=== PATIENT | female | born 1960 | race Caucasian/White ===

== ENCOUNTER 2021-11-29 09:14 | Day surgery (SDC) | payer OTHER ==
[~2021-11-29 09:14] MED LIST: ALPRAZolam 0.5 MG TAB PO PRN; HYDROmorphone 0.5 MG/0.5 ML SYRINGE IVP PRN
[2021-11-29 10:14] LABS: Platelet Count 271 k/uL (150-450)
[2021-11-29 10:29] LABS: INR 0.9 (<1.2); Prothrombin Time 10.3 sec (9.0-12.0)
--- NOTE | 2021-11-29 12:34 | XR ---
EXAMINATION TYPE: XR chest 1V portable DATE OF EXAM: 11/29/2021 COMPARISON: NONE HISTORY: Status post right adrenal biopsy TECHNIQUE: Single frontal view of the chest is obtained. FINDINGS: There is no focal air space opacity, pleural effusion, or pneumothorax seen. The cardiac silhouette size is within normal limits. The osseous structures are intact. IMPRESSION: No evident complication status post right adrenal biopsy
--- NOTE | 2021-11-29 13:05 | CT ---
EXAMINATION TYPE: CT biopsy adrenal gland DATE OF EXAM: 11/29/2021 HISTORY: Right adrenal mass COMPARISON: CT from outside institution 10/27/2021 Maximal barrier technique was utilized, hand hygiene obtained with soap and water. The skin overlyin g a suitable path to the right adrenal mass was localized using CT and the overlying skin was prepped and draped. Lidocaine used for local anesthesia. A skin charan made with a scalpel. Using CT [employer] ce, access was gained to the lesion with a 18-gauge core 17-gauge guide needle. Core specimen submit robina to cytology. Single pass performed due to local hemorrhage noted following the first pass. Follo wing the procedure no immediate complications. The patient is discharged in stable condition. Hemo stasis achieved. IMPRESSION: SUCCESSFUL CT GUIDED CORE BIOPSY right adrenal mass. PATHOLOGY PENDING. THIS PROCEDURE WAS PERFORME D BY THE UNDERSIGNED.
== END 2021-11-29 15:00 | disposition home or self-care (01) ==
LOC: RADPROMAIN 09:14
PROVIDERS: ATTEND Internal Medicine
DX: C79.70 Secondary malignant neoplasm of unspecified adrenal gland (principal); G81.94 Hemiplegia, unspecified affecting left nondominant side; G40.909 Epilepsy, unspecified, not intractable, without status epilepticus; M54.9 Dorsalgia, unspecified; Z82.3 Family history of stroke; Z80.9 Family history of malignant neoplasm, unspecified; F17.210 Nicotine dependence, cigarettes, uncomplicated; Z79.1 Long term (current) use of non-steroidal anti-inflammatories (NSAID); Z79.899 Other long term (current) drug therapy
CPT/HCPCS: 36415; 49180; 60699; 71045; 77012; 85049; 85610; 88305; 88341; 88342

== ENCOUNTER → 2022-03-01 | Outpatient (CLI) | payer OTHER ==
--- NOTE | 2022-03-02 05:00 | MR ---
EXAMINATION TYPE: MR brain wo/w con DATE OF EXAM: 03/01/2022 COMPARISON: HISTORY: F/U, malignant neoplasm of brain CONTRAST: Standard multiplanar, multisequence MRI departmental protocol images were obtained without contrast a nd with 7.5 mL intravenous Gadavist gadolinium contrast. There is a 1.6 x 3.8 cm irregular enhancing mass in the midline adjacent to the cerebral falx and the posterior corpus callosum on the right side. The lesion crosses the midline and is producing mass ef fect upon the falx. There is significant thinning of the body of corpus callosum. There is also an en hancing lesion in the posterior corpus callosum that measures 18 x 10 mm. There is patchy extensive c oalescent increased signal in the white matter around the lateral ventricles on the T2 and FLAIR imag es. There is some irregular areas of enhancement in the right parietal lobe near the midline in the a reas of cerebral edema. This area measures 16 mm. There are small curvilinear area of minimal enhance ment medial left frontal lobe measuring 10 x 3 mm. There is normal enhancement of the venous sinuses. No posterior fossa mass. Brainstem is intact. Sell a turcica is normal. No evidence of orbital mass. IMPRESSION: Large irregular elongated mass near the midline in the right posterior parietal lobe with mass effect upon the corpus callosum. Lesion crosses the midline into the left posterior parietal lobe. There is also enhancing lesion in the corpus callosum. Lesions are significantly increased compared to last M R scan and consistent with progression of tumor. There is irregular smaller area of enhancement in the medial right parietal lobe with adjacent enceph alomalacia which appears stable compared to old exams. There is some small area of curvilinear enhancement in the medial left frontal lobe convexity which i s improved compared to last exam. There is clearing of a 1.5 cm area of left lateral parietal parenchymal enhancement compared to old e xam.
== END | disposition home or self-care (01) ==
LOC: RADMRIMAIN 08:52
PROVIDERS: ATTEND Radiology Radiation Oncology
DX: C79.31 Secondary malignant neoplasm of brain (principal); C79.71 Secondary malignant neoplasm of right adrenal gland; C34.12 Malignant neoplasm of upper lobe, left bronchus or lung
CPT/HCPCS: 70553; A9585

== ENCOUNTER 2022-05-19 12:01 | Observation (INO) | payer OTHER ==
--- NOTE | 2022-05-19 12:52 | ED ---
General Adult HPI - General Chief complaint: Recheck/Abnormal Lab/Rx Stated complaint: Weakness Time Seen by Provider: 05/19/22 12:19 Source: patient, RN notes reviewed Mode of arrival: ambulatory Limitations: no limitations - History of Present Illness Initial comments: Patient is a pleasant 61-year-old female presenting to the emergency department for weakness and inability to care for self. Patient was discharged from nursing facility less than a month ago. Patient is not able to take her medications appropriately. Patient has frequent falls. Patient has difficulty using the bathroom and getting around the house. Patient is unable to raise herself or perform ADLs. Patient does have history of 2 strokes, one a couple years ago and the other one recently. Patient has chronic left-sided weakness since the strokes. - Related Data Home Medications Medication Instructions Recorded Confirmed Atorvastatin [Lipitor] 40 mg PO HS 11/22/21 05/19/22 Aspirin EC [Ecotrin Low Dose] 81 mg PO DAILY 05/19/22 05/19/22 Baclofen [Lioresal] 10 mg PO TID 05/19/22 05/19/22 Famotidine [Pepcid] 20 mg PO DAILY 05/19/22 05/19/22 Oxybutynin Xl [Ditropan XL] 5 mg PO HS 05/19/22 05/19/22 Sennosides/Docusate Sodium 1 tab PO DAILY 05/19/22 05/19/22 [Senna-S 8.6-50 mg Tablet] busPIRone HCl [Buspar] 10 mg PO TID 05/19/22 05/19/22 levETIRAcetam [Keppra] 500 mg PO Q8H 05/19/22 05/19/22 lisinopriL [Zestril] 5 mg PO DAILY 05/19/22 05/19/22 traZODone HCL [Desyrel] 50 mg PO HS 05/19/22 05/19/22 Allergies Allergy/AdvReac Type Severity Reaction Status Date / Time No Known Allergies Allergy Verified 05/19/22 13:58 Review of Systems ROS Statement: Those systems with pertinent positive or pertinent negative responses have been documented in the HPI. ROS Other: All systems not noted in ROS Statement are negative. Constitutional: Denies: fever Eyes: Denies: eye pain ENT: Denies: ear pain Respiratory: Denies: cough Cardiovascular: Denies: chest pain Endocrine: Denies: fatigue Gastrointestinal: Denies: abdominal pain Genitourinary: Denies: dysuria Musculoskeletal: Denies: back pain Skin: Denies: rash Neurological: Reports: as per HPI, weakness Past Medical History Past Medical History: CVA/TIA, Hyperlipidemia, Hypertension, Memory Impairment, Seizure Disorder Additional Past Medical History / Comment(s): CVA December 2019 with memory difficulty, left leg weakness, and blurry vision as residual. back pain, last seizure was October 2021 (had 5in a row) and had keppra increased then, hepatitis B approximately 35 years ago, mass on right adrenal gland History of Any Multi-Drug Resistant Organisms: None Reported Past Surgical History: No Surgical Hx Reported Additional Past Surgical History / Comment(s): Patient denies any memory of a seizure but cannot remember what happened during her CVA Past Anesthesia/Blood Transfusion Reactions: No Reported Reaction Additional Past Anesthesia/Blood Transfusion Reaction / Comment(s): no previous surgery or blood transfusion Past Psychological History: No Psychological Hx Reported Smoking Status: Current every day smoker Past Alcohol Use History: Occasional Past Drug Use History: None Reported - Past Family History Mother Family Medical History: Cancer Additional Family Medical History / Comment(s): Patient states her mother had multiple cancerous lesions but did not know original location Father Family Medical History: CVA/TIA, Diabetes Mellitus General Exam Limitations: no limitations General appearance: alert, in no apparent distress Head exam: Present: normocephalic Eye exam: Present: normal appearance, PERRL, EOMI Neck exam: Present: normal inspection Respiratory exam: Present: normal lung sounds bilaterally Cardiovascular Exam: Present: regular rate, normal rhythm GI/Abdominal exam: Present: soft. Absent: tenderness Extremities exam: Present: normal inspection Neurological exam: Present: alert, other (Expressive aphasia) Expanded Motor strength exam: RUE: 5, LUE: 4, RLE: 5, LLE: 4 Eye Response: (4) open spontaneously Motor Response: (6) obeys commands Verbal Response: (5) oriented Psychiatric exam: Present: normal affect, normal mood Skin exam: Present: normal color Course Vital Signs 05/19/22 12:04 Temperature 99 F Pulse Rate 72 Respiratory 18 Rate Blood Pressure 110/64 O2 Sat by Pulse 100 Oximetry Medical Decision Making - Medical Decision Making Patient reevaluated and resting comfortably in bed. Patient states she cannot go home as she is unable to care for self. Case was discussed with Dr. Busby, covering for Dr. Brink, who will admit. - Lab Data Result diagrams: 05/19/22 13:52 05/19/22 13:15 Lab Results 05/19/22 05/19/22 05/19/22 Range/Units 13:15 13:15 13:15 WBC (3.8-10.6) k/uL RBC (3.80-5.40) m/uL Hgb (11.4-16.0) gm/dL Hct (34.0-46.0) % MCV (80.0-100.0) fL MCH (25.0-35.0) pg MCHC (31.0-37.0) g/dL RDW (11.5-15.5) % Plt Count (150-450) k/uL MPV Neutrophils % % Lymphocytes % % Monocytes % % Eosinophils % % Basophils % % Neutrophils # (1.3-7.7) k/uL Lymphocytes # (1.0-4.8) k/uL Monocytes # (0-1.0) k/uL Eosinophils # (0-0.7) k/uL Basophils # (0-0.2) k/uL PT 10.2 (9.0-12.0) sec INR 0.9 (<1.2) APTT 23.9 (22.0-30.0) sec Sodium 138 (137-145) mmol/L Potassium 3.3 L (3.5-5.1) mmol/L Chloride 102 (98-107) mmol/L Carbon Dioxide 27 (22-30) mmol/L Anion Gap 9 mmol/L BUN 5 L (7-17) mg/dL Creatinine 0.54 (0.52-1.04) mg/dL Est GFR (CKD-EPI)AfAm >90 (>60 ml/min/1.73 sqM) Est GFR (CKD-EPI)NonAf >90 (>60 ml/min/1.73 sqM) Glucose 91 (74-99) mg/dL Plasma Lactic Acid Ganga 0.8 (0.7-2.0) mmol/L Calcium 8.7 (8.4-10.2) mg/dL Magnesium 1.8 (1.6-2.3) mg/dL Total Bilirubin 0.9 (0.2-1.3) mg/dL AST 20 (14-36) U/L ALT 28 (4-34) U/L Alkaline Phosphatase 83 (38-126) U/L Total Protein 5.6 L (6.3-8.2) g/dL Albumin 3.3 L (3.5-5.0) g/dL Urine Color Urine Appearance (Clear) Urine pH (5.0-8.0) Ur Specific [place] (1.001-1.035) Urine Protein (Negative) Urine Glucose (UA) (Negative) Urine Ketones (Negative) Urine Blood (Negative) Urine Nitrite (Negative) Urine Bilirubin (Negative) Urine Urobilinogen (<2.0) mg/dL Ur Leukocyte Esterase (Negative) 05/19/22 05/19/22 Range/Units 13:52 14:00 WBC 7.9 (3.8-10.6) k/uL RBC 3.96 (3.80-5.40) m/uL Hgb 11.9 (11.4-16.0) gm/dL Hct 35.6 (34.0-46.0) % MCV 89.8 (80.0-100.0) fL MCH 29.9 (25.0-35.0) pg MCHC 33.3 (31.0-37.0) g/dL RDW 12.8 (11.5-15.5) % Plt Count 249 (150-450) k/uL MPV 7.6 Neutrophils % 69 % Lymphocytes % 17 % Monocytes % 10 % Eosinophils % 3 % Basophils % 0 % Neutrophils # 5.4 (1.3-7.7) k/uL Lymphocytes # 1.4 (1.0-4.8) k/uL Monocytes # 0.8 (0-1.0) k/uL Eosinophils # 0.2 (0-0.7) k/uL Basophils # 0.0 (0-0.2) k/uL PT (9.0-12.0) sec INR (<1.2) APTT (22.0-30.0) sec Sodium (137-145) mmol/L Potassium (3.5-5.1) mmol/L Chloride (98-107) mmol/L Carbon Dioxide (22-30) mmol/L Anion Gap mmol/L BUN (7-17) mg/dL Creatinine (0.52-1.04) mg/dL Est GFR (CKD-EPI)AfAm (>60 ml/min/1.73 sqM) Est GFR (CKD-EPI)NonAf (>60 ml/min/1.73 sqM) Glucose (74-99) mg/dL Plasma Lactic Acid Ganga (0.7-2.0) mmol/L Calcium (8.4-10.2) mg/dL Magnesium (1.6-2.3) mg/dL Total Bilirubin (0.2-1.3) mg/dL AST (14-36) U/L ALT (4-34) U/L Alkaline Phosphatase (38-126) U/L Total Protein (6.3-8.2) g/dL Albumin (3.5-5.0) g/dL Urine Color Yellow Urine Appearance Clear (Clear) Urine pH 6.5 (5.0-8.0) Ur Specific [place] 1.006 (1.001-1.035) Urine Protein Negative (Negative) Urine Glucose (UA) Negative (Negative) Urine Ketones Negative (Negative) Urine Blood Negative (Negative) Urine Nitrite Negative (Negative) Urine Bilirubin Negative (Negative) Urine Urobilinogen <2.0 (<2.0) mg/dL Ur Leukocyte Esterase Negative (Negative) - Radiology Data Radiology results: image reviewed (Chest x-ray shows no acute process. Left upper lobe nodule.) Disposition Clinical Impression: Weakness Disposition: ADMITTED IP TO THIS [facility] Condition: Serious Is patient prescribed a controlled substance at d/c from ED?: No Referrals: JASSON COLLAZO DO [Primary Care Provider] - 1-2 days Time of Disposition: 15:55
[2022-05-19 13:41] LABS: INR 0.9 (<1.2); Partial Thromboplastin Time 23.9 sec (22.0-30.0); Prothrombin Time 10.2 sec (9.0-12.0)
[2022-05-19 13:42] LABS: ALT 28 U/L (4-34); AST 20 U/L (14-36); African American GFR (CKD) >90 (>60 ml/min/1.73 sqM); Albumin 3.3 g/dL (3.5-5.0); Alkaline Phosphatase 83 U/L (38-126); Anion Gap 9 mmol/L; Blood Urea Nitrogen 5 mg/dL (7-17); Calcium 8.7 mg/dL (8.4-10.2); Carbon Dioxide 27 mmol/L (22-30); Chloride 102 mmol/L (98-107); Glucose 91 mg/dL (74-99); Magnesium 1.8 mg/dL (1.6-2.3); Non-African American GFR(CKD) >90 (>60 ml/min/1.73 sqM); Potassium 3.3 mmol/L (3.5-5.1); Sodium 138 mmol/L (137-145); Total Bilirubin 0.9 mg/dL (0.2-1.3); Total Protein 5.6 g/dL (6.3-8.2)
[2022-05-19 13:57] LABS: Basophils % (A) 0 %; Eosinophils # (A) 0.2 k/uL (0-0.7); Eosinophils % (A) 3 %; HCT 35.6 % (34.0-46.0); HGB 11.9 gm/dL (11.4-16.0); Lymphocytes # (A) 1.4 k/uL (1.0-4.8); Lymphocytes % (A) 17 %; MCH 29.9 pg (25.0-35.0); MCHC 33.3 g/dL (31.0-37.0); MCV 89.8 fL (80.0-100.0); Mean Platelet Volume 7.6; Monocytes # (A) 0.8 k/uL (0-1.0); Monocytes % (A) 10 %; Neutrophils # (A) 5.4 k/uL (1.3-7.7); Neutrophils % (A) 69 %; Platelet Count 249 k/uL (150-450); RBC 3.96 m/uL (3.80-5.40); RDW 12.8 % (11.5-15.5); WBC 7.9 k/uL (3.8-10.6)
[2022-05-19 14:15] LABS: Appearance,Urine Clear (Clear); Bilirubin,Urine Negative (Negative); Blood,Urine Negative (Negative); Color,Urine Yellow; Glucose,Urine (UA) Negative (Negative); Ketones,Urine Negative (Negative); Leukocyte Esterase,Urine Negative (Negative); Nitrite,Urine Negative (Negative); PH, Urine 6.5 (5.0-8.0); Protein,Urine Negative (Negative); Specific Gravity,Urine 1.006 (1.001-1.035); Urobilinogen,Urine <2.0 mg/dL (<2.0)
--- NOTE | 2022-05-19 15:01 | XR ---
EXAMINATION TYPE: XR chest 2V DATE OF EXAM: 05/19/2022 COMPARISON: 11/29/2021 TECHNIQUE: PA and lateral views submitted. HISTORY: Weakness FINDINGS: The lungs are clear and there is no pneumothorax, pleural effusion, or focal pneumonia. Hyperinflat ion. Heart size normal. No overt failure. Diffuse osteopenia. Question the lung measuring 1.2 cm. IMPRESSION: 1. No acute process. Correlate for COPD. 2. There is a nodular density in the medial margin of the left upper lobe measuring 1.2 cm. Short-ter m follow-up CT of the chest is recommended to exclude mass.
[2022-05-19] MEDS ORDERED: NALOXONE 0.4 MG/ML 1 ML VIAL IV PRN (15:55)
[2022-05-19] MEDS ORDERED: ACETAMINOPHEN TAB 325 MG TAB PO PRN (15:55)
[2022-05-19] MEDS: SODIUM CHLORIDE 0.9% 1,000 ML IV SCH (16:29)
[2022-05-19] MEDS ORDERED: BACLOFEN 10 MG TAB PO PRN (21:08)
[2022-05-19] MEDS: OXYBUTYNIN XL 5 MG TAB.ER.24 PO SCH (21:55)
[2022-05-19] MEDS: busPIRone HCl 10 MG TAB PO SCH (21:55)
[2022-05-19] MEDS: levETIRAcetam 500 MG TAB PO SCH (21:55)
--- NOTE | 2022-05-20 04:18 | HP ---
HISTORY AND PHYSICAL CHIEF COMPLAINT: Weakness. HISTORY OF PRESENT ILLNESS: A 61-year-old woman with a past medical history of multiple medical issues, admitted to skilled nursing with a stroke and the patient was recently discharged. The patient is complaining of weakness and unable to take a medication appropriately. The patient had difficulty using bathroom and activities of daily living and the patient was taken to [facility] and admitted to the hospital for further evaluation and treatment. There is no history of any fever, rigors, or chills at this time. PAST MEDICAL HISTORY: Reviewed include history of recent stroke, hypertension, hyperlipidemia. HOME MEDICATIONS: Again reviewed include Desyrel and dose and rest of medications reviewed. ALLERGIES: None. FAMILY HISTORY: History of cancer. SOCIAL HISTORY: Occasional alcohol with smoking. REVIEW OF SYSTEMS: A 14-point review of systems is negative except as mentioned earlier. PHYSICAL EXAMINATION: VITAL SIGNS: Pulse 67, blood pressure 119/84, respirations 18. HEENT: Conjunctivae normal. NECK: No JVD. CARDIOVASCULAR: S1, S2 normal. RESPIRATIONS: Breath sounds diminished at the bases. No rhonchi. No crackles. ABDOMEN: Soft. LEGS: No edema. NERVOUS SYSTEM: Diffusely weak. SKIN: No ulcer, rash, bleeding. JOINTS: No active deforming arthropathy. LABS: Reviewed. ASSESSMENT: 1. Diffuse weakness and gait dysfunction and difficulty with activities of daily living. 2. History of recent stroke. 3. Hypertension. 4. Hyperlipidemia. 5. Dementia. 6. History of seizure disorder. RECOMMENDATIONS AND DISCUSSION: I recommend to continue current medications and symptomatic treatment. Resume the home medications. PT, OT evaluation, possible ECF rehab. personal care worker to evaluate the home situation. Prognosis guarded. Further recommendation to follow. MMODL / IJN: [id number] /
[2022-05-20] MEDS: levETIRAcetam 500 MG TAB PO SCH ×3 (05:34→21:45)
[2022-05-20] MEDS: SODIUM CHLORIDE 0.9% 1,000 ML IV SCH ×2 (05:36→21:45)
[2022-05-20] MEDS: FAMOTIDINE 20 MG TAB PO SCH (09:32)
[2022-05-20] MEDS: lisinopriL 5 MG TAB PO SCH (09:32)
[2022-05-20] MEDS: busPIRone HCl 10 MG TAB PO SCH ×3 (09:32→21:45)
[2022-05-20] MEDS: ASPIRIN 81 MG PO SCH (09:32)
[2022-05-20] MEDS: SENNOSIDES-DOCUSATE SODIUM 1 EACH TAB PO SCH (09:32)
[2022-05-20 11:29] LABS: African American GFR (CKD) >90 (>60 ml/min/1.73 sqM); Anion Gap 6 mmol/L; Blood Urea Nitrogen 8 mg/dL (7-17); Calcium 8.3 mg/dL (8.4-10.2); Carbon Dioxide 26 mmol/L (22-30); Chloride 105 mmol/L (98-107); Glucose 87 mg/dL (74-99); Non-African American GFR(CKD) >90 (>60 ml/min/1.73 sqM); Sodium 137 mmol/L (137-145)
--- NOTE | 2022-05-20 15:47 | P.PN ---
Subjective Progress Note Date: 05/20/22 This is a 61-year-old female who was recently admitted with significant weakness and unable to care for herself and take her medications appropriately at home. Patient has been having difficulty going to the bathroom and performing activities of daily living and physical therapy has been requested. Case management following for possible ECF. Potassium was found to be mildly low at 3.3 and unsure if replaced in the ER and will obtain repeat BMP today. Patient is afebrile denies chest pain or shortness of breath. Patient denies nausea or vomiting and is tolerating diet. Review of systems: Constitutional: No reports of fatigue, fever, or chills Cardiovascular: No reports of chest pain or palpitations Respiratory: No reports of shortness of breath or cough GI: No reports of nausea, no reports of of vomiting, no reports of diarrhea : No reports of dysuria or retention Neurovascular: reports of generalized weakness All medications have been reviewed Active Medications Acetaminophen (Acetaminophen Tab 325 Mg Tab) 650 mg PO Q6HR PRN PRN Reason: Mild Pain or Fever > 100.5 Aspirin (Aspirin 81 Mg) 81 mg PO DAILY [facility] Last Admin: 05/20/22 09:32 Dose: 81 mg Atorvastatin Calcium (Atorvastatin 40 Mg Tab) 40 mg PO HS [facility] Baclofen (Baclofen 10 Mg Tab) 10 mg PO TID PRN PRN Reason: Spasms Buspirone HCl (Buspirone Hcl 10 Mg Tab) 10 mg PO TID [facility] Last Admin: 05/20/22 09:32 Dose: 10 mg Famotidine (Famotidine 20 Mg Tab) 20 mg PO DAILY [facility] Last Admin: 05/20/22 09:32 Dose: 20 mg Sodium Chloride (Saline 0.9%) 1,000 mls @ 75 mls/hr IV .[id number] [facility] Last Admin: 05/20/22 05:36 Dose: 75 mls/hr Levetiracetam (Levetiracetam 500 Mg Tab) 500 mg PO Q8H [facility] Last Admin: 05/20/22 05:34 Dose: 500 mg Lisinopril (Lisinopril 5 Mg Tab) 5 mg PO DAILY [facility] Last Admin: 05/20/22 09:32 Dose: 5 mg Naloxone HCl (Naloxone 0.4 Mg/Ml 1 Ml Vial) 0.2 mg IV Q2M PRN PRN Reason: Opioid Reversal Oxybutynin Chloride (Oxybutynin Xl 5 Mg Tab.Er.24) 5 mg PO HS [facility] Last Admin: 05/19/22 21:55 Dose: 5 mg Senna/Docusate Sodium (Sennosides-Docusate Sodium 1 Each Tab) 1 each PO DAILY [facility] Last Admin: 05/20/22 09:32 Dose: 1 each Trazodone HCl (Trazodone Hcl 50 Mg Tab) 50 mg PO HS [facility] PHYSICAL EXAMINATION: GENERAL: The patient is alert and oriented x3, Well developed, well nourished. HEENT: Pupils are round and equally reacting to light. EOMI. no scleral icterus. No conjunctival pallor. Normocephalic, atraumatic. No pharyngeal erythema. No thyromegaly. CARDIOVASCULAR: S1 and S2 muffled PULMONARY: diminished breath sounds bilaterally with no wheezing or rhonchi noted. ABDOMEN: soft. Nontender on exam. non-distended, normoactive bowel sounds. No palpable organomegaly. MUSCULOSKELETAL: No joint swelling or deformity. EXTREMITIES: No cyanosis, clubbing, or pedal edema. NEUROLOGICAL: Gross neurological examination did not reveal any focal deficits. Diffuse weakness SKIN: No rashes. Assessment: Diffuse weakness and gait dysfunction with difficulty performing activities of daily living and lives on her own History of recent stroke in December 2019 Hypertension Hyperlipidemia Memory impairment after her stroke history of seizure disorder Continued ongoing nicotine abuse GI prophylaxis DVT prophylaxis Full code Plan: Recommend continue with current medications and resume home medications Recommend PT/OT evaluation Case management following working on ECF Insurance requires authorization for ECF which is currently pending at this time Potassium was 3.3 in the ER and repeat today is 4.0 Patient was continued on IV hydration although eating and drinking with no difficulties will discontinue IV fluids Encouraged increased activity as tolerated Given the holiday patient will most likely not discharge until Monday and will continue to monitor closely The impression and plan of care has been dictated by Sondra Rowe, nurse practitioner as directed. Dr. Indigo MUÑOZ I have performed a history and examination and MDM of this patient, discussed the same with the dictator, and agree with the dictator's assessment and plan as written ,documented as a scribe. Based on total visit time, I have performed more than 50% of the visit. Any additional findings or plans will be noted. Objective - Vital Signs Vital signs: Vital Signs Temp 97.8 F 05/20/22 04:01 Pulse 68 05/20/22 04:01 Resp 14 05/20/22 04:01 BP 106/51 05/20/22 04:01 Pulse Ox 96 05/20/22 04:01 FiO2 Intake & Output 05/19/22 05/20/22 05/20/22 18:59 06:59 18:59 Output Total 100 Balance -100 Weight 86.183 kg 71.5 kg Output: Urine 100 Straight 100 Other: Voiding Method Bedside Commode # Voids 1 - Labs CBC & Chem 7: 05/19/22 13:52 05/20/22 10:42 Labs: Abnormal Lab Results - Last 24 Hours (Table) 05/19/22 Range/Units 13:15 Potassium 3.3 L (3.5-5.1) mmol/L BUN 5 L (7-17) mg/dL Total Protein 5.6 L (6.3-8.2) g/dL Albumin 3.3 L (3.5-5.0) g/dL
[2022-05-20] MEDS: traZODone HCL 50 MG TAB PO SCH (21:45)
[2022-05-20] MEDS: OXYBUTYNIN XL 5 MG TAB.ER.24 PO SCH (21:45)
[2022-05-20] MEDS: ATORVASTATIN 40 MG TAB PO SCH (21:45)
[2022-05-21] MEDS: levETIRAcetam 500 MG TAB PO SCH ×3 (05:39→20:47)
[2022-05-21] MEDS: ASPIRIN 81 MG PO SCH (08:23)
[2022-05-21] MEDS: FAMOTIDINE 20 MG TAB PO SCH (08:23)
[2022-05-21] MEDS: lisinopriL 5 MG TAB PO SCH (08:23)
[2022-05-21] MEDS: SENNOSIDES-DOCUSATE SODIUM 1 EACH TAB PO SCH (08:23)
[2022-05-21] MEDS: busPIRone HCl 10 MG TAB PO SCH ×3 (08:23→20:47)
[2022-05-21] MEDS: ATORVASTATIN 40 MG TAB PO SCH (20:47)
[2022-05-21] MEDS: traZODone HCL 50 MG TAB PO SCH (20:47)
[2022-05-21] MEDS: OXYBUTYNIN XL 5 MG TAB.ER.24 PO SCH (20:47)
--- NOTE | 2022-05-21 22:08 | P.PN ---
Subjective Progress Note Date: 05/21/22 This is a 61-year-old female who was recently admitted with significant weakness and unable to care for herself and take her medications appropriately at home. Patient has been having difficulty going to the bathroom and performing activities of daily living and physical therapy has been requested. Case management following for possible ECF. Potassium was found to be mildly low at 3.3 and unsure if replaced in the ER and will obtain repeat BMP today. Patient is afebrile denies chest pain or shortness of breath. Patient denies nausea or vomiting and is tolerating diet. 05/21/2022 Patient is sitting up at bedside today. No acute events overnight. She is using bedside commode. Still with generalized weakness. She is pending subacute rehab placement currently pending bed placement at [facility]. Potassium has improved to 4.0, sodium 137, BUN 8, creatinine 0.52. Urinalysis negative for infection. Continues off IV fluids she is tolerating 75% or greater of meals. She remains afebrile, heart rate 57, blood pressure 106/66, 99% room air. Review of systems: Constitutional: No reports of fatigue, fever, or chills Cardiovascular: No reports of chest pain or palpitations Respiratory: No reports of shortness of breath or cough GI: No reports of nausea, no reports of of vomiting, no reports of diarrhea : No reports of dysuria or retention Neurovascular: reports of generalized weakness All medications have been reviewed PHYSICAL EXAMINATION: GENERAL: The patient is alert and oriented x3, Well developed, well nourished. HEENT: Pupils are round and equally reacting to light. EOMI. no scleral icterus. No conjunctival pallor. Normocephalic, atraumatic. No pharyngeal erythema. No thyromegaly. CARDIOVASCULAR: S1 and S2 muffled PULMONARY: diminished breath sounds bilaterally with no wheezing or rhonchi noted. ABDOMEN: soft. Nontender on exam. non-distended, normoactive bowel sounds. No palpable organomegaly. MUSCULOSKELETAL: No joint swelling or deformity. EXTREMITIES: No cyanosis, clubbing, or pedal edema. NEUROLOGICAL: Gross neurological examination did not reveal any focal deficits. Diffuse weakness SKIN: No rashes. Assessment: Diffuse weakness and gait dysfunction with difficulty performing activities of daily living and lives on her own History of recent stroke in December 2019 with left sided weakness residuals Hypertension Hyperlipidemia Memory impairment after her stroke history of seizure disorder Continued ongoing nicotine abuse GI prophylaxis DVT prophylaxis Full code Plan: Case management following working on ECF Insurance requires authorization for ECF which is currently pending at this time Encouraged increased activity as tolerated Given the patient will most likely not discharge until Monday Continue all other supportive care The impression and plan of care has been dictated by Lesvia Cazares, Nurse Practitioner as directed. Dr. Indigo MD I have performed a history and physical examination and medical decision making of this patient, discussed the same with the dictator, and agree with the dictators assessment and plan as written, documented as a scribe. Based on total visit time, I have performed more than 50% of this visit. Objective - Vital Signs Vital signs: Vital Signs Temp 98.8 F 05/21/22 12:12 Pulse 62 05/21/22 12:12 Resp 18 05/21/22 12:12 BP 114/71 05/21/22 12:12 Pulse Ox 99 05/21/22 12:12 FiO2 Intake & Output 05/20/22 05/21/22 05/21/22 18:59 06:59 18:59 Intake Total 825 900 Balance 825 900 Intake: IV 825 Sodium Chloride 0.9% 1, 825 000 ml @ 75 mls/hr IV . [id number] [facility] Rx#:[id number] Intake, IV Titration 900 Amount Sodium Chloride 0.9% 1, 900 000 ml @ 75 mls/hr IV . [id number] [facility] Rx#:[id number] Other: Voiding Method Bedside Commode # Voids 1 2 # Bowel Movements 1 - Labs CBC & Chem 7: 05/19/22 13:52 05/20/22 10:42 Assessment and Plan Time with Patient: Less than 30
[2022-05-22] MEDS: levETIRAcetam 500 MG TAB PO SCH ×3 (05:52→21:47)
[2022-05-22] MEDS: lisinopriL 5 MG TAB PO SCH (08:11)
[2022-05-22] MEDS: ASPIRIN 81 MG PO SCH (08:11)
[2022-05-22] MEDS: busPIRone HCl 10 MG TAB PO SCH ×3 (08:11→21:47)
[2022-05-22] MEDS: FAMOTIDINE 20 MG TAB PO SCH (08:11)
[2022-05-22] MEDS: SENNOSIDES-DOCUSATE SODIUM 1 EACH TAB PO SCH (08:11)
[2022-05-22] MEDS: ATORVASTATIN 40 MG TAB PO SCH (21:47)
[2022-05-22] MEDS: OXYBUTYNIN XL 5 MG TAB.ER.24 PO SCH (21:47)
[2022-05-22] MEDS: traZODone HCL 50 MG TAB PO SCH (21:47)
--- NOTE | 2022-05-22 22:38 | P.PN ---
Subjective Progress Note Date: 05/22/22 This is a 61-year-old female who was recently admitted with significant weakness and unable to care for herself and take her medications appropriately at home. Patient has been having difficulty going to the bathroom and performing activities of daily living and physical therapy has been requested. Case management following for possible ECF. Potassium was found to be mildly low at 3.3 and unsure if replaced in the ER and will obtain repeat BMP today. Patient is afebrile denies chest pain or shortness of breath. Patient denies nausea or vomiting and is tolerating diet. 05/21/2022 Patient is sitting up at bedside today. No acute events overnight. She is using bedside commode. Still with generalized weakness. She is pending subacute rehab placement currently pending bed placement at [facility]. Potassium has improved to 4.0, sodium 137, BUN 8, creatinine 0.52. Urinalysis negative for infection. Continues off IV fluids she is tolerating 75% or greater of meals. She remains afebrile, heart rate 57, blood pressure 106/66, 99% room air. 05/22/2022 Patient is pending ECF placement when bed available. She has been mainly resting in bed, sitting up for meals. She reports no pain, no acute events overnight. She is pending ECF placement. No new labs from today. She is afebrile, heart rate 67, blood pressure 96/65 today, 99% room air. Lisinopril will be held and monitor blood pressure closely. Can resume at lower dose 2.5 mg daily if blood pressure improves. Review of systems: Constitutional: No reports of fatigue, fever, or chills Cardiovascular: No reports of chest pain or palpitations Respiratory: No reports of shortness of breath or cough GI: No reports of nausea, no reports of of vomiting, no reports of diarrhea : No reports of dysuria or retention Neurovascular: reports of generalized weakness All medications have been reviewed PHYSICAL EXAMINATION: GENERAL: The patient is alert and oriented x3, Well developed, well nourished. HEENT: Pupils are round and equally reacting to light. EOMI. no scleral icterus. No conjunctival pallor. Normocephalic, atraumatic. No pharyngeal erythema. No thyromegaly. CARDIOVASCULAR: S1 and S2 muffled PULMONARY: diminished breath sounds bilaterally with no wheezing or rhonchi noted. ABDOMEN: soft. Nontender on exam. non-distended, normoactive bowel sounds. No palpable organomegaly. MUSCULOSKELETAL: No joint swelling or deformity. EXTREMITIES: No cyanosis, clubbing, or pedal edema. NEUROLOGICAL: Gross neurological examination did not reveal any focal deficits. Diffuse weakness SKIN: No rashes. Assessment: Diffuse weakness and gait dysfunction with difficulty performing activities of daily living and lives on her own History of recent stroke in December 2019 with left sided weakness residuals Hypertension currently normotensive Hyperlipidemia Memory impairment after her stroke history of seizure disorder Continued ongoing nicotine abuse GI prophylaxis DVT prophylaxis Full code Plan: Hold lisinopril Case management following working on ECF Insurance requires authorization for ECF which is currently pending at this time Encouraged increased activity as tolerated Given the patient will most likely not discharge until Monday Continue all other supportive care The impression and plan of care has been dictated by Lesvia Cazares Nurse Practitioner as directed. Dr. Indigo MD I have performed a history and physical examination and medical decision making of this patient, discussed the same with the dictator, and agree with the dictators assessment and plan as written, documented as a scribe. Based on total visit time, I have performed more than 50% of this visit. Objective - Vital Signs Vital signs: Vital Signs Temp 97.4 F L 05/22/22 04:39 Pulse 66 05/22/22 04:39 Resp 18 05/22/22 04:39 BP 110/66 05/22/22 04:39 Pulse Ox 95 05/22/22 04:39 FiO2 Intake & Output 05/21/22 05/22/22 05/22/22 18:59 06:59 18:59 Other: Voiding Method Bedside Commode # Voids 3 5 # Bowel Movements 1 - Labs CBC & Chem 7: 05/19/22 13:52 05/20/22 10:42 Assessment and Plan Time with Patient: Less than 30
[2022-05-23] MEDS: levETIRAcetam 500 MG TAB PO SCH ×3 (05:27→21:18)
[2022-05-23] MEDS: busPIRone HCl 10 MG TAB PO SCH ×3 (08:42→21:18)
[2022-05-23] MEDS: ASPIRIN 81 MG PO SCH (08:42)
[2022-05-23] MEDS: SENNOSIDES-DOCUSATE SODIUM 1 EACH TAB PO SCH (08:42)
[2022-05-23] MEDS: FAMOTIDINE 20 MG TAB PO SCH (08:42)
--- NOTE | 2022-05-23 14:09 | P.PN ---
Subjective Progress Note Date: 05/23/22 This is a 61-year-old female who was recently admitted with significant weakness and unable to care for herself and take her medications appropriately at home. Patient has been having difficulty going to the bathroom and performing activities of daily living and physical therapy has been requested. Case management following for possible ECF. Potassium was found to be mildly low at 3.3 and unsure if replaced in the ER and will obtain repeat BMP today. Patient is afebrile denies chest pain or shortness of breath. Patient denies nausea or vomiting and is tolerating diet. 05/21/2022 Patient is sitting up at bedside today. No acute events overnight. She is using bedside commode. Still with generalized weakness. She is pending subacute rehab placement currently pending bed placement at [facility]. Potassium has improved to 4.0, sodium 137, BUN 8, creatinine 0.52. Urinalysis negative for infection. Continues off IV fluids she is tolerating 75% or greater of meals. She remains afebrile, heart rate 57, blood pressure 106/66, 99% room air. 05/22/2022 Patient is pending ECF placement when bed available. She has been mainly resting in bed, sitting up for meals. She reports no pain, no acute events overnight. She is pending ECF placement. No new labs from today. She is afebrile, heart rate 67, blood pressure 96/65 today, 99% room air. Lisinopril will be held and monitor blood pressure closely. Can resume at lower dose 2.5 mg daily if blood pressure improves. 05/23/2022 Patient is resting in bed today. No acute events overnight. She continues to report generalized weakness. Blood pressure 95/65 lisinopril remains on hold. Pending ECF placement when bed available. Clinically she is stable for discharge. Review of systems: Constitutional: No reports of fatigue, fever, or chills Cardiovascular: No reports of chest pain or palpitations Respiratory: No reports of shortness of breath or cough GI: No reports of nausea, no reports of of vomiting, no reports of diarrhea : No reports of dysuria or retention Neurovascular: reports of generalized weakness All medications have been reviewed PHYSICAL EXAMINATION: GENERAL: The patient is alert and oriented x3, Well developed, well nourished. HEENT: Pupils are round and equally reacting to light. EOMI. no scleral icterus. No conjunctival pallor. Normocephalic, atraumatic. No pharyngeal erythema. No thyromegaly. CARDIOVASCULAR: S1 and S2 muffled PULMONARY: diminished breath sounds bilaterally with no wheezing or rhonchi noted. ABDOMEN: soft. Nontender on exam. non-distended, normoactive bowel sounds. No palpable organomegaly. MUSCULOSKELETAL: No joint swelling or deformity. EXTREMITIES: No cyanosis, clubbing, or pedal edema. NEUROLOGICAL: Gross neurological examination did not reveal any focal deficits. Diffuse weakness SKIN: No rashes. Assessment: Diffuse weakness and gait dysfunction with difficulty performing activities of daily living and lives on her own History of recent stroke in December 2019 with left sided weakness residuals Hypertension currently normotensive Hyperlipidemia Memory impairment after her stroke history of seizure disorder Continued ongoing nicotine abuse GI prophylaxis DVT prophylaxis Full code Plan: Hold lisinopril Case management following working on ECF Insurance requires authorization for ECF which is currently pending at this time Encouraged increased activity as tolerated Given the patient will most likely not discharge until Monday if bed available at ECF Continue all other supportive care The impression and plan of care has been dictated by Lesvia Cazares Nurse Practitioner as directed. Dr. Indigo MD I have performed a history and physical examination and medical decision making of this patient, discussed the same with the dictator, and agree with the dictators assessment and plan as written, documented as a scribe. Based on total visit time, I have performed more than 50% of this visit. Objective - Vital Signs Vital signs: Vital Signs Temp 97.3 F L 05/23/22 13:00 Pulse 76 05/23/22 13:00 Resp 16 05/23/22 13:00 BP 95/65 05/23/22 13:00 Pulse Ox 99 05/23/22 13:00 FiO2 Intake & Output 05/22/22 05/23/22 05/23/22 18:59 06:59 18:59 Other: Voiding Method Bedside Commode Bedside Commode # Voids 2 3 - Labs CBC & Chem 7: 05/19/22 13:52 05/20/22 10:42 Assessment and Plan Time with Patient: Less than 30
[2022-05-23] MEDS: OXYBUTYNIN XL 5 MG TAB.ER.24 PO SCH (21:18)
[2022-05-23] MEDS: ATORVASTATIN 40 MG TAB PO SCH (21:18)
[2022-05-23] MEDS: traZODone HCL 50 MG TAB PO SCH (21:19)
[2022-05-24] MEDS: levETIRAcetam 500 MG TAB PO SCH ×3 (05:12→21:29)
[2022-05-24] MEDS: busPIRone HCl 10 MG TAB PO SCH ×3 (08:04→21:29)
[2022-05-24] MEDS: SENNOSIDES-DOCUSATE SODIUM 1 EACH TAB PO SCH (08:04)
[2022-05-24] MEDS: FAMOTIDINE 20 MG TAB PO SCH (08:04)
[2022-05-24] MEDS: ASPIRIN 81 MG PO SCH (08:04)
[2022-05-24] MEDS: OXYBUTYNIN XL 5 MG TAB.ER.24 PO SCH (21:28)
[2022-05-24] MEDS: traZODone HCL 50 MG TAB PO SCH (21:29)
[2022-05-24] MEDS: ATORVASTATIN 40 MG TAB PO SCH (21:29)
[2022-05-25] MEDS: levETIRAcetam 500 MG TAB PO SCH (05:24)
--- NOTE | 2022-05-25 06:33 | P.PN ---
Subjective Progress Note Date: 05/24/22 This is a 61-year-old female who was recently admitted with significant weakness and unable to care for herself and take her medications appropriately at home. Patient has been having difficulty going to the bathroom and performing activities of daily living and physical therapy has been requested. Case management following for possible ECF. Potassium was found to be mildly low at 3.3 and unsure if replaced in the ER and will obtain repeat BMP today. Patient is afebrile denies chest pain or shortness of breath. Patient denies nausea or vomiting and is tolerating diet. 05/21/2022 Patient is sitting up at bedside today. No acute events overnight. She is using bedside commode. Still with generalized weakness. She is pending subacute rehab placement currently pending bed placement at [facility]. Potassium has improved to 4.0, sodium 137, BUN 8, creatinine 0.52. Urinalysis negative for infection. Continues off IV fluids she is tolerating 75% or greater of meals. She remains afebrile, heart rate 57, blood pressure 106/66, 99% room air. 05/22/2022 Patient is pending ECF placement when bed available. She has been mainly resting in bed, sitting up for meals. She reports no pain, no acute events overnight. She is pending ECF placement. No new labs from today. She is afebrile, heart rate 67, blood pressure 96/65 today, 99% room air. Lisinopril will be held and monitor blood pressure closely. Can resume at lower dose 2.5 mg daily if blood pressure improves. 05/23/2022 Patient is resting in bed today. No acute events overnight. She continues to report generalized weakness. Blood pressure 95/65 lisinopril remains on hold. Pending ECF placement when bed available. Clinically she is stable for discharge. 05/24/2022 . Patient is seen and evaluated in follow-up today and awaiting insurance authorization for possible ECF. Patient is clinically stable with no acute overnight issues noted. Work is following and working on authorization which is currently pending. Plan is for [facility]. Patient is afebrile and denies chest pain or shortness of breath. Tolerating diet with no reports of nausea or vomiting. Review of systems: Constitutional: No reports of fatigue, fever, or chills Cardiovascular: No reports of chest pain or palpitations Respiratory: No reports of shortness of breath or cough GI: No reports of nausea, no reports of of vomiting, no reports of diarrhea : No reports of dysuria or retention Neurovascular: reports of generalized weakness All medications have been reviewed PHYSICAL EXAMINATION: GENERAL: The patient is alert and oriented x3, Well developed, well nourished. HEENT: Pupils are round and equally reacting to light. EOMI. no scleral icterus. No conjunctival pallor. Normocephalic, atraumatic. No pharyngeal erythema. No thyromegaly. CARDIOVASCULAR: S1 and S2 muffled PULMONARY: diminished breath sounds bilaterally with no wheezing or rhonchi noted. ABDOMEN: soft. Nontender on exam. non-distended, normoactive bowel sounds. No palpable organomegaly. MUSCULOSKELETAL: No joint swelling or deformity. EXTREMITIES: No cyanosis, clubbing, or pedal edema. NEUROLOGICAL: Gross neurological examination did not reveal any focal deficits. Diffuse weakness SKIN: No rashes. Assessment: Diffuse weakness and gait dysfunction with difficulty performing activities of daily living and lives on her own History of recent stroke in December 2019 with left-sided weakness residuals Hypertension, currently normotensive Hyperlipidemia Memory impairment after her stroke history of seizure disorder Continued ongoing nicotine abuse GI prophylaxis DVT prophylaxis Full code Plan: Hold lisinopril Social work following working on ECF Insurance requires authorization for ECF which is currently pending at this time Encouraged increased activity as tolerated Continue all other supportive care Possible discharge in 24 hours. The impression and plan of care has been dictated by Sondra Rowe, nurse practitioner as directed. Dr. Emily MD I have performed a history and examination and MDM of this patient, discussed the same with the dictator, and agree with the dictator's assessment and plan as written ,documented as a scribe. Based on total visit time, I have performed more than 50% of the visit. Any additional findings or plans will be noted. Objective - Vital Signs Vital signs: Vital Signs Temp 97.5 F L 05/24/22 05:00 Pulse 65 05/24/22 05:00 Resp 18 05/24/22 05:00 BP 104/61 05/24/22 05:00 Pulse Ox 97 05/24/22 05:00 FiO2 Intake & Output 05/23/22 05/24/2205/24/22 18:59 06:59 18:59 Intake Total 600 120 Balance 600 120 Intake: Oral 600 120 Other: Voiding Method Bedside Commode Bedside Commode # Voids 3 3 # Bowel Movements 1 1 - Labs CBC & Chem 7: 05/19/22 13:52 05/20/22 10:42
[2022-05-25] MEDS: ASPIRIN 81 MG PO SCH (09:14)
[2022-05-25] MEDS: FAMOTIDINE 20 MG TAB PO SCH (09:14)
[2022-05-25] MEDS: SENNOSIDES-DOCUSATE SODIUM 1 EACH TAB PO SCH (09:14)
[2022-05-25] MEDS: busPIRone HCl 10 MG TAB PO SCH (09:14)
--- NOTE | 2022-05-25 09:50 | P.DS ---
Providers Date of admission: 05/19/22 15:55 Expected date of discharge: 05/25/22 Attending physician: Kike Busby Primary care physician: JASSON COLLAZO, Hospital Course: Final diagnosis Diffuse weakness and gait dysfunction with difficulty performing activities of daily living and lives on her own History of recent stroke in December 2019 with left-sided weakness residuals Hypertension, currently normotensive Hyperlipidemia Memory impairment after her stroke history of seizure disorder Continued ongoing nicotine abuse GI prophylaxis DVT prophylaxis Full code Discharge disposition Patient is being discharged in a stable condition with guarded prognosis to [facility]. Patient will follow-up with Dr. collazo in the outpatient setting upon discharge. Patient is to continue with physical therapy for continued strength and mobility. Total time taken is greater than 35 minutes. Hospital course This is a 61-year-old female who was recently admitted with increased weakness and unable to perform ADLs and care for herself. Patient with a past medical history of CVA with some residual and experiencing more weakness over the last few weeks. Patient was found to be hypokalemic on admission which was replaced and improved. Recommend outpatient follow-up with primary care provider. Low pressures on the lower side and recommend continuing to hold lisinopril and resume at a lower dose if the blood pressure is elevated. Currently no reports of chest pain, shortness of breath, or palpitations. Patient is afebrile. No reports of nausea or vomiting and patient is tolerating diet. Patient will be going to [facility] today. Physical exam: Gen: This is a 51-year-old female awake, alert and oriented 3, well-developed, well-nourished HEENT: Head is atraumatic, normocephalic. Pupils equal, round. Sclerae is anicteric. NECK: Supple. No JVD. No lymphadenopathy. No thyromegaly. LUNGS: Clear to auscultation. No wheezes or rhonchi. No intercostal retractions. HEART: Regular rate and rhythm. No murmur. ABDOMEN: Soft. Bowel sounds are present. No masses. No tenderness. EXTREMITIES: No pedal edema. No calf tenderness. NEUROLOGICAL: Patient is awake, alert and oriented x3. Cranial nerves 2 through 12 are grossly intact. Diffusely weak with some post CVA residual on the left Please refer to medication reconciliation sheet for a list of medications. The impression and plan of care has been dictated by Sondra Rowe, Nurse Practitioner as directed. Dr. Emily MD I have performed a history and examination and MDM of this patient, discussed the same with the dictator, and agree with the dictator's assessment and plan as written ,documented as a scribe. Based on total visit time, I have performed more than 50% of the visit. Patient Condition at Discharge: Stable Plan - Discharge Summary Discharge Rx Participant: No New Discharge Prescriptions: New Acetaminophen Tab [Tylenol] 650 mg PO Q6HR PRN tab PRN Reason: Mild Pain Or Fever > 100.5 Continue Atorvastatin [Lipitor] 40 mg PO HS Baclofen [Lioresal] 10 mg PO TID busPIRone HCl [Buspar] 10 mg PO TID levETIRAcetam [Keppra] 500 mg PO Q8H Oxybutynin Xl [Ditropan XL] 5 mg PO HS traZODone HCL [Desyrel] 50 mg PO HS Aspirin EC [Ecotrin Low Dose] 81 mg PO DAILY Famotidine [Pepcid] 20 mg PO DAILY lisinopriL [Zestril] 5 mg PO DAILY Sennosides/Docusate Sodium [Senna-S 8.6-50 mg Tablet] 1 tab PO DAILY Discharge Medication List Atorvastatin [Lipitor] 40 mg PO HS 11/22/21 [History] Aspirin EC [Ecotrin Low Dose] 81 mg PO DAILY 05/19/22 [History] Baclofen [Lioresal] 10 mg PO TID 05/19/22 [History] Famotidine [Pepcid] 20 mg PO DAILY 05/19/22 [History] Oxybutynin Xl [Ditropan XL] 5 mg PO HS 05/19/22 [History] Sennosides/Docusate Sodium [Senna-S 8.6-50 mg Tablet] 1 tab PO DAILY 05/19/22 [History] busPIRone HCl [Buspar] 10 mg PO TID 05/19/22 [History] levETIRAcetam [Keppra] 500 mg PO Q8H 05/19/22 [History] lisinopriL [Zestril] 5 mg PO DAILY 05/19/22 [History] traZODone HCL [Desyrel] 50 mg PO HS 05/19/22 [History] Acetaminophen Tab [Tylenol] 650 mg PO Q6HR PRN tab 05/21/22 [Rx] Follow up Appointment(s)/Referral(s): JASSON COLLAZO DO [Primary Care Provider] - 1-2 days Kyle Carter MD [STAFF PHYSICIAN] - 1 Week Ambulatory/Diagnostic Orders: Basic Metabolic Panel [LAB.AMB] Time Frame: 3 Days, Location: None Selected Activity/Diet/Wound Care/Special Instructions: Patient is going to [facility] Activity as tolerated Recommend continuing current diet Recommend follow-up with primary care provider outpatient Recommend continuing current medications as prescribed Discharge Disposition: TRANSFER TO SNF/ECF
[2022-05-25 10:42] VITALS: BP 106/69; PULSE 72; RESP 15; TEMP 97.9
== END 2022-05-25 12:08 ==
LOC: EC 12:01 → 5NMEDONC 15:55 → INTOOBSV 15:55 → 5NMEDONC 18:05
PROVIDERS: ADMIT Hospitalist; ATTEND Hospitalist
DX: R53.1 Weakness (principal); E87.6 Hypokalemia; F03.90 Unspecified dementia, unspecified severity, without behavioral disturbance, psychotic disturbance, mood disturbance, and anxiety; R26.9 Unspecified abnormalities of gait and mobility; Z60.2 Problems related to living alone; Z74.1 Need for assistance with personal care; I69.354 Hemiplegia and hemiparesis following cerebral infarction affecting left non-dominant side; I69.311 Memory deficit following cerebral infarction; I69.398 Other sequelae of cerebral infarction; H53.8 Other visual disturbances; I10 Essential (primary) hypertension; E78.5 Hyperlipidemia, unspecified; E27.9 Disorder of adrenal gland, unspecified; G40.909 Epilepsy, unspecified, not intractable, without status epilepticus; Z86.19 Personal history of other infectious and parasitic diseases; R91.1 Solitary pulmonary nodule; R29.6 Repeated falls; F17.200 Nicotine dependence, unspecified, uncomplicated; Z79.82 Long term (current) use of aspirin; Z79.899 Other long term (current) drug therapy; Z91.14 Patient's other noncompliance with medication regimen; Z83.3 Family history of diabetes mellitus; Z82.3 Family history of stroke; Z80.9 Family history of malignant neoplasm, unspecified
CPT/HCPCS: 96360; 96361 ×2; 51701; 99285; 36415; 93005; 97116; 97530; 97140; 97163; 97166; 80053; 80048; 83605; 83735; 85025; 85610; 85730; 81003; 71046; G0378 ×6